=== PATIENT | male | born 1980 | race Caucasian/White ===

== ENCOUNTER 2018-05-01 05:30 | Emergency (ER) | payer OTHER ==
[2018-05-01] MEDS: LORAZEPAM 1 MG TAB PO (06:59)
[2018-05-01 08:02] LABS: TROPONIN-I < 0.012 ng/ml (0.000-0.120)
== END 2018-05-01 08:28 | disposition home or self-care (01) ==
LOC: E/R 05:30
DX: F15.10 Other stimulant abuse, uncomplicated (principal); F17.210 Nicotine dependence, cigarettes, uncomplicated
CPT/HCPCS: 84484; 93005; 99284-25

== ENCOUNTER 2018-09-22 17:10 | Inpatient (IN) | payer OTHER ==
[2018-09-22] MEDS ORDERED: NACL 0.9% 3 ML SYG IV (18:30)
[2018-09-22] MEDS ORDERED: ONDANSETRON 4 MG INJ IV (18:30)
[2018-09-22] MEDS ORDERED: morphine SULFATE/PF (2 MG/2 ML) SYG IV (18:30)
[2018-09-22] MEDS ORDERED: MAGNESIUM HYDROXIDE 30ML CUP PO (18:30)
[2018-09-22] MEDS ORDERED: ZOLPIDEM 5 MG TAB PO (18:30)
[2018-09-22] MEDS ORDERED: ACETAMINOPHEN 325 MG TAB PO (18:30)
[2018-09-22] MEDS: HYDROCODONE/APAP (5/325) TAB PO (18:40)
[2018-09-22] MEDS: AMPICILLIN/SULB 3 GM/NS (PMX) 100 ML IVPB (19:33)
[2018-09-22] MEDS: morphine 4 MG/ML VIAL IV (21:20)
[2018-09-23] MEDS: AMPICILLIN/SULB 3 GM/NS (PMX) 100 ML IVPB ×5 (00:46→23:43)
[2018-09-23] MEDS: HYDROCODONE/APAP (5/325) TAB PO ×4 (00:46→16:14)
[2018-09-23] MEDS: morphine 4 MG/ML VIAL IV ×3 (02:19→20:48)
[2018-09-23 05:04] LABS: ADD MAN DIFF? NO
[2018-09-23 05:10] LABS: BASOPHILS % 0.4 % (0.0-2.0); EOSINOPHILS # 0.1 10^3/ul (0.0-0.5); EOSINOPHILS % 1.5 % (0.0-7.0); HEMATOCRIT 35.7 % (42.0-52.0); LYMPHOCYTES # 2.5 10^3/ul (0.8-2.9); LYMPHOCYTES % 30.9 % (15.0-51.0); MEAN CORPUSCULAR HEMOGLOBIN 30.7 pg (29.0-33.0); MEAN CORPUSCULAR HGB CONC 33.6 g/dl (32.0-37.0); MEAN CORPUSCULAR VOLUME 91.3 fl (82.0-101.0); MEAN PLATELET VOLUME 10.7 fl (7.4-10.4); MONOCYTE # 0.8 10^3/ul (0.3-0.9); MONOCYTES % 9.9 % (0.0-11.0); NEUTROPHIL # 4.6 10^3/ul (1.6-7.5); PLATELET COUNT 156 10^3/UL (140-415); RED BLOOD COUNT 3.91 10^6/ul (4.70-6.10); RED CELL DISTRIBUTION WIDTH 13.2 % (11.5-14.5)
[2018-09-23 05:20] LABS: HEMOGLOBIN A1C 4.8 % (0-5.9)
[2018-09-23 05:36] LABS: ALANINE AMINOTRANSFERASE 22 IU/L (13-69); ALBUMIN 3.6 g/dl (3.3-4.9); ALBUMIN/GLOBULIN RATIO 1.24; ALKALINE PHOSPHATASE 43 IU/L (42-121); ANION GAP 7 (5-13); ASPARTATE AMINO TRANSFERASE 21 IU/L (15-46); BILIRUBIN,INDIRECT 0.2 mg/dl (0-1.1); BILIRUBIN,TOTAL 0.2 mg/dl (0.2-1.3); BLOOD UREA NITROGEN 15 mg/dl (7-20); CALCIUM 8.9 mg/dl (8.4-10.2); CARBON DIOXIDE 28 mmol/L (21-31); CHLORIDE 103 mmol/L (97-110); Estimated GFR > 60 mL/min (>60); GLUCOSE 91 mg/dl (70-220); MAGNESIUM 1.9 mg/dl (1.7-2.5); PHOSPHORUS 3.9 mg/dl (2.5-4.9); POTASSIUM 4.2 mmol/L (3.5-5.1); SODIUM 138 mmol/L (135-144); TOTAL PROTEIN 6.5 g/dl (6.1-8.1)
[2018-09-23] MEDS: FLUOXETINE 20 MG CAP PO (08:58)
[2018-09-23] MEDS: ENOXAPARIN 40 MG/0.4 ML SYG SC (09:02)
[2018-09-23] MEDS ORDERED: hydrALAzine 20 MG INJ IV (16:00)
[2018-09-23] MEDS: METHYLPREDNISOLONE 40 MG INJ IV (16:14)
[2018-09-23] MEDS: DOCUSATE SODIUM 100 MG CAP PO (18:07)
[2018-09-23] MEDS: HYDROCODONE/APAP (10/325) TAB PO (22:01)
[2018-09-24] MEDS: morphine 4 MG/ML VIAL IV ×3 (01:07→10:10)
[2018-09-24 05:14] LABS: ADD MAN DIFF? NO
[2018-09-24 05:35] LABS: BASOPHILS % 0.1 % (0.0-2.0); HEMATOCRIT 40.5 % (42.0-52.0); HEMOGLOBIN 13.9 g/dl (14.0-18.0); LYMPHOCYTES # 1.1 10^3/ul (0.8-2.9); LYMPHOCYTES % 11.5 % (15.0-51.0); MEAN CORPUSCULAR HEMOGLOBIN 30.1 pg (29.0-33.0); MEAN CORPUSCULAR HGB CONC 34.3 g/dl (32.0-37.0); MEAN CORPUSCULAR VOLUME 87.7 fl (82.0-101.0); MEAN PLATELET VOLUME 10.9 fl (7.4-10.4); MONOCYTE # 0.3 10^3/ul (0.3-0.9); MONOCYTES % 2.6 % (0.0-11.0); NEUTROPHIL # 8.2 10^3/ul (1.6-7.5); NEUTROPHILS % 85.4 % (39.0-77.0); PLATELET COUNT 211 10^3/UL (140-415); RED BLOOD COUNT 4.62 10^6/ul (4.70-6.10); RED CELL DISTRIBUTION WIDTH 12.5 % (11.5-14.5)
[2018-09-24 05:35] LABS: WHITE BLOOD COUNT 9.6 10^3/ul (4.8-10.8)
[2018-09-24 05:37] LABS: PHOSPHORUS 2.3 mg/dl (2.5-4.9)
[2018-09-24 05:37] LABS: MAGNESIUM 1.9 mg/dl (1.7-2.5)
[2018-09-24] MEDS: AMPICILLIN/SULB 3 GM/NS (PMX) 100 ML IVPB ×2 (05:49→11:34)
[2018-09-24 06:03] LABS: ANION GAP 9 (5-13); BLOOD UREA NITROGEN 8 mg/dl (7-20); CALCIUM 9.8 mg/dl (8.4-10.2); CARBON DIOXIDE 25 mmol/L (21-31); CHLORIDE 106 mmol/L (97-110); CREATININE 0.48 mg/dl (0.61-1.24); Estimated GFR > 60 mL/min (>60); GLUCOSE 125 mg/dl (70-220); SODIUM 140 mmol/L (135-144)
[2018-09-24] MEDS: HYDROCODONE/APAP (10/325) TAB PO (06:55)
[2018-09-24 07:13] LABS: POTASSIUM 4.3 mmol/L (3.5-5.1)
[2018-09-24] MEDS: FLUOXETINE 20 MG CAP PO (09:11)
[2018-09-24] MEDS: ENOXAPARIN 40 MG/0.4 ML SYG SC (09:13)
[2018-09-24] MEDS ORDERED: POTASSIUM PHOSPHATE 20 MEQ in SOD CHLORIDE 0.9% 250 ML IVPB (14:00)
== END 2018-09-24 13:10 | disposition home or self-care (01) | DRG 159 ==
LOC: MS1 17:10
DX: M27.2 Inflammatory conditions of jaws (principal); K04.7 Periapical abscess without sinus; F32.9 Major depressive disorder, single episode, unspecified; F17.200 Nicotine dependence, unspecified, uncomplicated; Z59.0 Homelessness
CPT/HCPCS: 80048; 80053; 83036; 83735; 84100; 85025